=== PATIENT | female | born 1965 | race Caucasian/White ===

== ENCOUNTER 2017-07-16 17:06 | Inpatient (IN) | payer MEDICAID ==
[~2017-07-16] VITALS: Ht 157.5 cm; Wt 54.5 kg
[2017-07-16] MEDS ORDERED: SODIUM CHLORIDE 0.9% 1,000 ML IV ONE (17:40)
[2017-07-16] MEDS ORDERED: NITROGLYCERIN OINT 2%, 1GM TP ONE ×2 (18:00→18:02)
[2017-07-16] MEDS ORDERED: ONDANSETRON 2MG/ML, 2ML IVPush ONE (18:00)
[2017-07-16] MEDS ORDERED: SODIUM CHLORIDE FLUSH 10ML SYR IVF ONE (18:00)
[2017-07-16] MEDS ORDERED: ONDANSETRON 2MG/ML, 2ML ONE (18:02)
[2017-07-16 18:10] LABS: HEMATOCRIT 38.7 % (34.6-47.8); HEMOGLOBIN 13.1 g/dL (11.7-16.4)
[2017-07-16] MEDS ORDERED: ACETAMINOPHEN 325 MG TABLET ONE (18:19)
[2017-07-16 18:20] LABS: ASPARTATE AMINO TRANSFERASE 19 U/L (15-37); BLOOD UREA NITROGEN 9 mg/dL (7-18)
[2017-07-16 18:24] LABS: IS PT STATUS REG ER OR PRE ER? YES
[2017-07-16] MEDS ORDERED: LISI-170 PO (18:26)
[2017-07-16] MEDS ORDERED: AMLO5TAB2 PO (18:26)
[2017-07-16] MEDS ORDERED: ASPI-496 PO (18:26)
[2017-07-16] MEDS ORDERED: SERT100T5 PO (18:26)
[2017-07-16] MEDS ORDERED: ACETAMINOPHEN 325 MG TABLET PO ONE (18:30)
[2017-07-16] MEDS ORDERED: ACETAMINOPHEN 325 MG TABLET PO PRN (20:00)
[2017-07-16] MEDS ORDERED: NITROGLYCERIN 0.4 MG BOTTLE (25 TABS) SL PRN (20:00)
[2017-07-16] MEDS: HEPARIN 5,000 UNITS/ML, 1ML SQ SCH (20:00)
[2017-07-16] MEDS ORDERED: ONDANSETRON 2MG/ML, 2ML IVPush PRN (20:00)
[2017-07-16] MEDS ORDERED: BISACODYL 10 MG SUPP PR PRN (20:00)
[2017-07-16] MEDS ORDERED: NICOTINE 14MG/24 HR PATCH.TD24 TD SCH (20:00)
[2017-07-16] MEDS ORDERED: POLYETHYLENE GLYCOL 17 GM PACKET PO PRN (20:00)
[2017-07-16 20:05] VITALS: BP 142/79
[2017-07-16] MEDS ORDERED: ALPR0.5T PO (20:10)
[2017-07-16] MEDS: SODIUM CHLORIDE FLUSH 10ML SYR IVF SCH (21:45)
[2017-07-16] MEDS: morphine SULFATE 10 MG/ML, 1ML IVPush PRN (21:45)
[2017-07-16] MEDS ORDERED: CALCIUM CARBONATE 500 MG TAB.CHEW PO PRN (22:30)
[2017-07-17 00:42] LABS: IS PT STATUS REG ER OR PRE ER? NO
[2017-07-17 01:17] VITALS: BP 107/57
[2017-07-17] MEDS: HEPARIN 5,000 UNITS/ML, 1ML SQ SCH ×2 (03:28→12:00)
[2017-07-17 06:05] LABS: ASPARTATE AMINO TRANSFERASE 15 U/L (15-37); BLOOD UREA NITROGEN 8 mg/dL (7-18)
[2017-07-17 06:09] LABS: HEMATOCRIT 38.1 % (34.6-47.8); HEMOGLOBIN 12.8 g/dL (11.7-16.4); WHITE BLOOD COUNT 5.1 x10^3/uL (3.4-10)
[2017-07-17 06:12] LABS: IS PT STATUS REG ER OR PRE ER? NO
[2017-07-17 07:16] VITALS: BP 126/75
[2017-07-17] MEDS ORDERED: REGADENOSON 0.4 MG/5 ML SYRINGE ONE (08:08)
[2017-07-17] MEDS ORDERED: AMLODIPINE 5 MG TABLET PO SCH (09:00)
[2017-07-17] MEDS ORDERED: LISINOPRIL 20 MG TABLET PO SCH (09:00)
[2017-07-17] MEDS ORDERED: SERTRALINE 100MG TABLET PO SCH (09:00)
[2017-07-17] MEDS ORDERED: ASPIRIN 81 MG TABLET EC PO SCH (09:00)
[2017-07-17] MEDS ORDERED: SENNA/DOCUSATE TABLET PO SCH (09:00)
[2017-07-17] MEDS: SODIUM CHLORIDE FLUSH 10ML SYR IVF SCH (09:00)
[2017-07-17] MEDS: ALPRazolam 1MG TABLET PO PRN ×2 (11:13→14:14)
[2017-07-17] MEDS: morphine SULFATE 10 MG/ML, 1ML IVPush PRN (11:26)
[2017-07-17] MEDS ORDERED: METOCLOPRAMIDE 5 MG/ML, 2ML IVPush PRN (13:00)
[2017-07-17] MEDS ORDERED: DIPHENHYDRAMINE 50 MG/ML, 1ML IVPush PRN (13:00)
[2017-07-17 13:26] VITALS: BP 144/85
[2017-07-17] MEDS ORDERED: PNEUMOCOCCAL 23 VACCINE IM-VACC ONE (14:30)
== END 2017-07-17 15:35 | disposition home or self-care (01) | DRG 313 ==
LOC: ED 18:45 → EDIP 19:04 → 5SO 19:57
PROVIDERS: ADMIT Internal Medicine; ATTEND Internal Medicine
DX: R07.9 Chest pain, unspecified (principal); I25.9 Chronic ischemic heart disease, unspecified; E87.1 Hypo-osmolality and hyponatremia; I10 Essential (primary) hypertension; E78.5 Hyperlipidemia, unspecified; F17.210 Nicotine dependence, cigarettes, uncomplicated; F32.9 Major depressive disorder, single episode, unspecified; F41.9 Anxiety disorder, unspecified; Z82.3 Family history of stroke; Z86.718 Personal history of other venous thrombosis and embolism; Z82.49 Family history of ischemic heart disease and other diseases of the circulatory system; Z79.82 Long term (current) use of aspirin
CPT/HCPCS: 36415; 71010; 78452; 80053; 80061; 83880; 84439; 84443; 84484; 85025; 93005; 93017; 96361; 96374; J2405; J2785; A9502; C9898; J1200; J2270; J2765; J7030

== ENCOUNTER 2018-06-23 11:51 | Observation (INO) | payer MEDICAID ==
[~2018-06-23] VITALS: Ht 157.5 cm; Wt 57.5 kg
[~2018-06-23 11:51] MED LIST: ALPR0.5T PO; AMLO5TAB2 PO; ASPI-496 PO; LISI-170 PO; SERT100T5 PO
[2018-06-23] MEDS ORDERED: ATOR20TA9 PO (12:07)
[2018-06-23] MEDS ORDERED: BUPR75TA6 PO (12:07)
[2018-06-23] MEDS ORDERED: SODIUM CHLORIDE 0.9% 1,000ML IVBOLUS ONE (12:30)
[2018-06-23] MEDS ORDERED: SODIUM CHLORIDE FLUSH 10ML SYR IVF ONE (12:30)
[2018-06-23] MEDS ORDERED: LORazepam 2 MG/ML, 1ML IVPush ONE (12:30)
[2018-06-23] MEDS ORDERED: ONDANSETRON 2MG/ML, 2ML IVPush ONE (12:30)
[2018-06-23 12:32] LABS: BASOPHILS # (AUTO) 0.08 x10^3/uL (0-0.1); BASOPHILS % (AUTO) 1 % (0-1); EOSINOPHILS % (AUTO) 1 % (1-7); LYMPHOCYTES # (AUTO) 2.43 x10^3/uL (1-3.4); LYMPHOCYTES % (AUTO) 32 % (22-44); MD NO; MEAN CORPUSCULAR HEMOGLOBIN 31.8 pg (27.0-34.8); MEAN CORPUSCULAR HGB CONC 34.6 g/dL (32.4-35.8); MEAN CORPUSCULAR VOLUME 91.7 fL (80-100); MONOCYTES # (AUTO) 0.42 x10^3/uL (0.2-0.8); MONOCYTES % (AUTO) 6 % (2-9); NEUTROPHILS # (AUTO) 4.57 x10^3/uL (1.8-6.8); NEUTROPHILS % (AUTO) 60 % (42-75); PLATELET COUNT 249 x10^3/uL (130-400); RED BLOOD COUNT 4.55 x10^6/uL (3.82-5.3); RED CELL DISTRIBUTION WIDTH 13.9 % (9.6-15.2)
[2018-06-23 12:39] LABS: ALANINE AMINOTRANSFERASE 22 U/L (12-78); ALBUMIN 2.9 g/dL (3.4-5.0); ANION GAP 7 mmol/L (5-15); CALCIUM 7.9 mg/dL (8.5-10.1); CHLORIDE 104 mmol/L (98-107); CREATININE 0.79 mg/dL (0.55-1.02); INTERNATIONAL NORMALIZED RATIO 0.94 (0.93-1.1); PROTHROMBIN TIME 9.8 Seconds (9.6-11.5)
[2018-06-23] MEDS ORDERED: LORazepam 2 MG/ML, 1ML ONE (12:42)
[2018-06-23] MEDS ORDERED: ONDANSETRON 2MG/ML, 2ML ONE (12:43)
[2018-06-23 12:44] LABS: ALKALINE PHOSPHATASE 78 U/L (45-117); BILIRUBIN,TOTAL 0.4 mg/dL (0.2-1.0); TOTAL PROTEIN 5.9 g/dL (6.4-8.2); TROPONIN I < 0.015 ng/mL (0.000-0.045)
[2018-06-23] MEDS ORDERED: ASPIRIN 325 MG TABLET PO ONE (13:30)
[2018-06-23] MEDS ORDERED: MORPHINE SULFATE 4 MG/ML, 1ML IVPush PRN ×2 (13:30→18:30)
[2018-06-23] MEDS ORDERED: ASPIRIN 325 MG TABLET ONE (13:37)
[2018-06-23] MEDS ORDERED: MORPHINE SULFATE 4 MG/ML, 1ML ONE ×2 (13:37→18:16)
[2018-06-23] MEDS ORDERED: POLYETHYLENE GLYCOL 17 GM PACKET PO PRN (14:30)
[2018-06-23] MEDS ORDERED: LABETALOL 5MG/ML, 20ML IVPush PRN (14:30)
[2018-06-23] MEDS ORDERED: ONDANSETRON 2MG/ML, 2ML IVPush PRN (14:30)
[2018-06-23] MEDS ORDERED: ALBUTEROL/IPRATROPIUM 2.5MG/0.5MG, 3 ML NPPB PRN (15:00)
[2018-06-23] MEDS ORDERED: ENOXAPARIN 40 MG/0.4 ML SQ SCH (15:00)
[2018-06-23] MEDS ORDERED: GABA300C10 PO (15:04)
[2018-06-23] MEDS ORDERED: NORT25CA PO (15:04)
[2018-06-23 15:32] LABS: CHOL/HDL RATIO 5.6; CHOLESTEROL, TOTAL 179 mg/dL (140-239); FREE T4 (FREE THYROXINE) 1.01 ng/dL (0.76-1.46); HDL CHOL % 18 % (28-40); HDL CHOLESTEROL (DIRECT) 32 mg/dL (40-60); TRIGLYCERIDES 425 mg/dL (50-200)
[2018-06-23] MEDS: ALPRazolam 1MG TABLET PO SCH ×2 (15:39→20:54)
[2018-06-23] MEDS ORDERED: NICOTINE 14MG/24 HR PATCH.TD24 ONE (15:53)
[2018-06-23] MEDS ORDERED: NICOTINE 14MG/24 HR PATCH.TD24 TD SCH (16:00)
[2018-06-23] MEDS ORDERED: morphine SULFATE 10 MG/ML, 1ML IVPush PRN (16:30)
[2018-06-23 18:00] LABS: TROPONIN I < 0.015 ng/mL (0.000-0.045)
[2018-06-23] MEDS: FAMOTIDINE 20 MG/2 ML IVPush SCH ×2 (18:22→18:38)
[2018-06-23] MEDS: SODIUM CHLORIDE 0.9% 1,000 ML IV SCH (18:22)
[2018-06-23] MEDS ORDERED: ONDANSETRON ODT 4 MG PO PRN (18:30)
[2018-06-23 20:10] VITALS: BP 143/75
[2018-06-23] MEDS: GUAIFENESIN 200 MG TABLET PO SCH (20:55)
[2018-06-23] MEDS: BUPROPION 75 MG TABLET PO SCH (20:55)
[2018-06-23] MEDS: GABAPENTIN 300 MG CAPSULE PO SCH (20:56)
[2018-06-23] MEDS ORDERED: ATORVASTATIN 20 MG TABLET PO SCH (21:00)
[2018-06-24] MEDS: SODIUM CHLORIDE 0.9% 1,000 ML IV SCH (01:03)
[2018-06-24 01:21] LABS: TROPONIN I < 0.015 ng/mL (0.000-0.045)
[2018-06-24 02:39] VITALS: BP 101/65
[2018-06-24 05:48] LABS: ALANINE AMINOTRANSFERASE 19 U/L (12-78); ALBUMIN 2.4 g/dL (3.4-5.0); ANION GAP 6 mmol/L (5-15); CALCIUM 7.4 mg/dL (8.5-10.1); CHLORIDE 113 mmol/L (98-107); CREATININE 0.79 mg/dL (0.55-1.02)
[2018-06-24 05:50] LABS: MEAN CORPUSCULAR HEMOGLOBIN 31.3 pg (27.0-34.8); MEAN CORPUSCULAR HGB CONC 33.6 g/dL (32.4-35.8); MEAN CORPUSCULAR VOLUME 93.1 fL (80-100); RED BLOOD COUNT 3.77 x10^6/uL (3.82-5.3); RED CELL DISTRIBUTION WIDTH 14.3 % (9.6-15.2)
[2018-06-24 05:51] LABS: BASOPHILS # (AUTO) 0.03 x10^3/uL (0-0.1); BASOPHILS % (AUTO) 1 % (0-1); EOSINOPHILS # (AUTO) 0.13 x10^3/uL (0-0.4); EOSINOPHILS % (AUTO) 2 % (1-7); HEMOGLOBIN A1C 5.6 % (4.2-6.3); LYMPHOCYTES # (AUTO) 2.42 x10^3/uL (1-3.4); LYMPHOCYTES % (AUTO) 42 % (22-44); MD NO; MEAN PLATELET VOLUME 9.4 fL (7.4-10.4); MONOCYTES # (AUTO) 0.43 x10^3/uL (0.2-0.8); MONOCYTES % (AUTO) 7 % (2-9); NEUTROPHILS # (AUTO) 2.78 x10^3/uL (1.8-6.8); NEUTROPHILS % (AUTO) 48 % (42-75); PLATELET COUNT 189 x10^3/uL (130-400)
[2018-06-24 05:58] LABS: ALKALINE PHOSPHATASE 63 U/L (45-117); BILIRUBIN,TOTAL 0.1 mg/dL (0.2-1.0); THYROID STIMULATING HORMONE 0.933 mIU/L (0.358-3.740); TOTAL PROTEIN 4.7 g/dL (6.4-8.2)
[2018-06-24] MEDS ORDERED: ASPIRIN 81 MG TABLET EC PO SCH (06:00)
[2018-06-24] MEDS: GUAIFENESIN 200 MG TABLET PO SCH (06:11)
[2018-06-24 06:57] VITALS: BP 144/75
[2018-06-24 08:03] LABS: TROPONIN I < 0.015 ng/mL (0.000-0.045)
[2018-06-24] MEDS: FAMOTIDINE 20 MG/2 ML IVPush SCH (08:11)
[2018-06-24] MEDS: BUPROPION 75 MG TABLET PO SCH (08:12)
[2018-06-24] MEDS: ALPRazolam 1MG TABLET PO SCH (08:13)
[2018-06-24] MEDS: GABAPENTIN 300 MG CAPSULE PO SCH (08:13)
[2018-06-24] MEDS ORDERED: AMLODIPINE 5 MG TABLET PO SCH (09:00)
[2018-06-24] MEDS ORDERED: SERTRALINE 100MG TABLET PO SCH (09:00)
[2018-06-24] MEDS ORDERED: LOSARTAN 50MG TABLET PO SCH (09:00)
[2018-06-24] MEDS ORDERED: SENNA/DOCUSATE TABLET PO SCH (09:00)
[2018-06-24] MEDS ORDERED: LISINOPRIL 20 MG TABLET PO SCH (09:00)
[2018-06-24] MEDS ORDERED: FENOFIBRATE 145 MG TABLET PO SCH (09:00)
[2018-06-24] MEDS ORDERED: FENO145T30 PO (09:17)
[2018-06-24] MEDS ORDERED: ASPI-621 PO (09:17)
[2018-06-24] MEDS ORDERED: LOSA50TA2 PO (09:17)
[2018-06-27] MEDS ORDERED: GEMF600T3 PO (13:17)
== END 2018-06-24 10:00 | disposition home or self-care (01) ==
LOC: ED 13:01 → INTOOBSV 13:02 → EDIP 13:02 → 5SO 14:22 → UNDODISIN 06-24 10:00
PROVIDERS: ADMIT Internal Medicine; ATTEND Internal Medicine
DX: R07.89 Other chest pain (principal); R11.2 Nausea with vomiting, unspecified; I10 Essential (primary) hypertension; E78.00 Pure hypercholesterolemia, unspecified; E78.1 Pure hyperglyceridemia; E78.5 Hyperlipidemia, unspecified; F17.210 Nicotine dependence, cigarettes, uncomplicated; F32.9 Major depressive disorder, single episode, unspecified; F41.0 Panic disorder [episodic paroxysmal anxiety]; J44.9 Chronic obstructive pulmonary disease, unspecified; Z79.82 Long term (current) use of aspirin; Z79.899 Other long term (current) drug therapy; Z82.3 Family history of stroke; Z82.49 Family history of ischemic heart disease and other diseases of the circulatory system; M54.5 Low back pain
CPT/HCPCS: 36415; 71045; 74021; 76700; 80053; 80061; 83036; 83690; 83735; 83880; 84100; 84439; 84443; 84484; 85025; 85379; 85610; 85730; 93005; 93306; 96361; 96372; 96374; 96375; 99285; G0378; J1650; J2060; J2405; J7030; S0028

== ENCOUNTER → 2018-08-15 | Outpatient (CLI) | payer MEDICAID ==
[~2018-08-15] MED LIST changes: -AMLO5TAB2 PO; +AMLO5TAB7 PO; +ASPI-621 PO; +ATOR20TA9 PO; +BUPR75TA6 PO; +FENO145T30 PO; +GABA300C10 PO; +GEMF600T4 PO; +LOSA50TA2 PO; +NORT25CA PO
== END | disposition home or self-care (01) ==
LOC: CFH 12:39
PROVIDERS: ATTEND Internal Medicine
DX: M43.8X4 Other specified deforming dorsopathies, thoracic region (principal); J44.9 Chronic obstructive pulmonary disease, unspecified; Z87.891 Personal history of nicotine dependence
CPT/HCPCS: 71046